=== PATIENT | female | born 1995 | race African-American/Black ===

== ENCOUNTER 2017-12-18 10:33 | Emergency (ER) | payer BC ==
[~2017-12-18] VITALS: Ht 170.2 cm; Wt 106.8 kg
[2017-12-18 10:36] VITALS: TEMP 98
[2017-12-18] MEDS ORDERED: NOVOLOG FLEX100 U/ML SQ (10:39)
[2017-12-18] MEDS ORDERED: GLUCOPHAGE500 MG/TAB PO (10:40)
[2017-12-18] MEDS ORDERED: NEURONTIN100 MG/CAP PO (10:40)
[2017-12-18 11:13] LABS: COLLECTION METHOD CLEAN CATCH
[2017-12-18 11:21] LABS: MUCOUS Present /lpf; PH 6 (5-8); SQUAMOUS EPITHELIAL 0-2 /hpf; URINE APPEARANCE Clear; URINE BACTERIA None Seen /hpf; URINE BILIRUBIN Negative (NEGATIVE); URINE BLOOD Negative (NEGATIVE); URINE COLOR Yellow; URINE GLUCOSE 3+ (NEGATIVE); URINE KETONE 2+ (NEGATIVE); URINE LEUKOCYTE ESTERASE Negative (NEGATIVE); URINE NITRATE Negative (NEGATIVE); URINE PROTEIN(semi-quant) Negative (NEGATIVE); URINE RBC 0-2 /hpf; URINE UROBILINOGEN Negative (NEGATIVE)
[2017-12-18 11:29] LABS: BASO % 0.7 % (0.0-2.0); EOS % 0.5 % (0-4.0); GRAN # 4.2 (1.4-6.5); GRAN % 73.1 % (42.2-75.2); HEMOGLOBIN 12.7 g/dl (12.0-15.0); LYMPH # 1.2 (1.2-3.4); LYMPH % 20.9 % (20.0-51.0); MEAN CELL VOLUME 88 fl (80.0-95.0); MEAN CORPUSCULAR HEMOGLOBIN 29 pg (26.0-32.0); MEAN CORPUSCULAR HGB CONC 33 g/dl (33.0-37.0); MEAN PLATELET VOLUME 10.1 fl (7.4-10.4); MONO # 0.3 (0.1-0.6); MONO % 4.5 % (1.7-9.3); PLATELET COUNT 318 K/mm3 (130-400); RED BLOOD COUNT 4.34 M/mm3 (4.10-5.30); REDCELL DISTRIBUTION WIDTH-CV 12.2 % (11.5-14.5)
[2017-12-18 11:40] LABS: ALANINE AMINOTRANSFERASE 28 U/L (9-52); ALBUMIN 4.2 gm/dL (3.5-5.0); ALKALINE PHOSPHATASE 101 U/L (50-136); ANION GAP 8 mmol/L (7-16); AST,SGOT 17 U/L (15-37); BILIRUBIN,TOTAL 0.4 mg/dL (0.0-1.0); BLOOD UREA NITROGEN 11 mg/dL (7-17); CALCIUM 9.2 mg/dL (8.4-10.2); CARBON DIOXIDE 25 mmol/L (22-30); CHLORIDE 100 mmol/L (98-107); CREATININE, serum 0.65 mg/dL (0.52-1.25); GLUCOSE 375 mg/dL (74-106); LIPASE 58 U/L (23-300); POTASSIUM 4.7 mmol/L (3.4-5.0); SODIUM 133 mmol/L (137-145); TOTAL PROTEIN 7.4 gm/dL (6.4-8.2)
[2017-12-18 11:43] LABS: ACETONE,SERUM NEGATIVE
[2017-12-18] MEDS ORDERED: ZOFRAN 4MG T4 MG/TAB PO (13:27)
[2017-12-18] MEDS ORDERED: LANTUS SOLOS100 U/ML SQ (13:27)
[2017-12-18 13:55] VITALS: BP 140/86; PULSE 80
== END 2017-12-18 13:56 | disposition home or self-care (01) ==
LOC: COL.ER 10:33
PROVIDERS: Emergency Medicine
DX: E10.65 Type 1 diabetes mellitus with hyperglycemia (principal); R11.2 Nausea with vomiting, unspecified; Z79.4 Long term (current) use of insulin
CPT/HCPCS: J1815; J2405; J7030